=== PATIENT | male | born 1960 | race Two or more races ===

== ENCOUNTER 2020-03-08 11:12 | Emergency (ER) | payer OTHER ==
[~2020-03-08] VITALS: Ht 165.1 cm; Wt 74.8 kg
[2020-03-08] MEDS ORDERED: ASPirin 81 mg TAB PO ONE (11:45)
[2020-03-08] MEDS ORDERED: FAMOTIDINE 20 MG TAB PO ONE (11:45)
[2020-03-08 13:35] LABS: Basophils # (auto) 0 10 ^3/uL (0-0.2); Basophils % (auto) 0.5 % (0.0-2.0); Eosinophils # (auto) 0 10 ^3/uL (0-0.8); Eosinophils % (auto) 0.2 % (0.0-7.0); Hematocrit 40.6 % (41.0-53.0); Hemoglobin 14.2 g/dL (13.5-17.5); Lymphocytes # (auto) 1.1 10 ^3/uL (0.4-5.4); Lymphocytes % (auto) 12.5 % (10.0-50.0); Mean Corpuscular Hemoglobin 30.8 pg (28.0-32.0); Mean Corpuscular Hgb Conc. 34.9 g/dL (32.0-36.0); Mean Corpuscular Volume 88.2 fL (80.0-100.0); Monocytes # (auto) 0.4 10 ^3/uL (0-1.3); Neutrophils # (auto) 7.1 10 ^3/uL (1.6-8.6); Neutrophils % (auto) 81.8 % (37.0-80.0); Nucleated Red Blood Cells % 0.1 %; Red Cell Distribution Width 13.6 % (11.8-14.3); White Blood Cell 8.6 10^3/uL (4.4-10.8)
[2020-03-08 16:57] LABS: Potassium 4.1 mmol/L (3.5-5.1)
[2020-03-08 17:03] LABS: Albumin 4.5 g/dL (3.4-5.0); BUN/Creatinine Ratio 12.1
[2020-03-08 17:06] LABS: Bilirubin, Total 0.9 mg/dL (0.2-1.0); Total Protein 8.3 g/dL (6.4-8.2)
[2020-03-08 18:16] VITALS: BP 122/77
== END 2020-03-08 18:26 | disposition home or self-care (01) ==
LOC: ER 11:12
DX: R07.89 Other chest pain (principal); E78.5 Hyperlipidemia, unspecified; I10 Essential (primary) hypertension
CPT/HCPCS: 36415; 71046; 80053; 84484; 85025; 93005

== ENCOUNTER 2020-12-24 08:10 | Inpatient (IN) | payer BC, OTHER ==
[~2020-12-24] VITALS: Ht 162.6 cm; Wt 67.5 kg
[2020-12-24] MEDS ORDERED: ASPirin 81 mg TAB PO ONE (09:30)
[2020-12-24 09:52] LABS: Basophils # (auto) 0.1 10 ^3/uL (0-0.2); Basophils % (auto) 0.9 % (0.0-2.0); Eosinophils # (auto) 0 10 ^3/uL (0-0.8); Eosinophils % (auto) 0.7 % (0.0-7.0); Hematocrit 42.8 % (41.0-53.0); Hemoglobin 14.6 g/dL (13.5-17.5); Lymphocytes % (auto) 15.6 % (10.0-50.0); Mean Corpuscular Hemoglobin 30.7 pg (28.0-32.0); Mean Corpuscular Volume 90.1 fL (80.0-100.0); Monocytes # (auto) 0.4 10 ^3/uL (0-1.3); Monocytes % (auto) 5.4 % (0.0-12.0); Neutrophils # (auto) 5.1 10 ^3/uL (1.6-8.6); Neutrophils % (auto) 77.4 % (37.0-80.0); Nucleated Red Blood Cells % 0.1 %; Red Blood Cells 4.75 10^6/uL (4.5-5.90); Red Cell Distribution Width 13.6 % (11.8-14.3); White Blood Cell 6.6 10^3/uL (4.4-10.8)
[2020-12-24 09:58] LABS: Albumin 3.9 g/dL (3.4-5.0); Anion Gap 5 (5-15); Blood Urea Nitrogen 16 mg/dL (7-18); Calcium 8.8 mg/dL (8.5-10.1); Carbon Dioxide 27 mmol/L (21-32); Chloride 109 mmol/L (98-107); Glucose 109 mg/dL (74-106); Potassium 4.5 mmol/L (3.5-5.1); Sodium 141 mmol/L (136-145)
[2020-12-24 10:05] LABS: Alanine Aminotransferase 44 U/L (16-61); Alkaline Phosphatase 79 U/L (45-117); Aspartate Aminotransferase 18 U/L (15-37); BUN/Creatinine Ratio 14.8; Bilirubin, Total 0.8 mg/dL (0.2-1.0); GFR African American 90 mL/min; GFR Non-African American 74 mL/min
[2020-12-24 10:20] LABS: Urine Bacteria NONE SEEN /hpf (None Seen); Urine Blood Negative /uL (Negative); Urine Specific Gravity 1.011 (1.001-1.035); Urine WBC 1 /hpf (0 - 3)
[2020-12-24] MEDS ORDERED: HYDROcodone-ACET 5/325MG TAB PO PRN (14:30)
[2020-12-24] MEDS ORDERED: ACETAMINOPHEN 500 MG TAB PO PRN (14:30)
[2020-12-24] MEDS ORDERED: NITROGLYCERIN 0.4 MG SL TAB SL PRN (14:30)
[2020-12-24] MEDS ORDERED: ONDANSETRON HCL 4 MG/2 ML VIAL IV PRN (14:30)
[2020-12-24] MEDS ORDERED: hydrALAZINE HCL 20 MG/ML VL IV PRN (14:30)
[2020-12-24] MEDS ORDERED: MORPHINE SULFATE INJECTION 2 MG/ML SYRG IV PRN ×2 (14:30)
[2020-12-24 15:50] LABS: CRP High Sensitivity 0.08 mg/dL (< 0.3)
[2020-12-24] MEDS: DOCUSATE SOD 100 MG CAP PO SCH (22:05)
[2020-12-24] MEDS: METOPROLOL TARTRATE 25 MG TAB PO SCH (22:05)
[2020-12-24] MEDS: ATORVASTATIN 20 MG TAB PO SCH (22:06)
[2020-12-24 22:25] VITALS: BP 158/85
[2020-12-24 22:30] VITALS: BP 147/70
[2020-12-24 23:27] VITALS: BP 147/70
[2020-12-25] VITALS (10 sets, daily range): BP systolic 113–141; BP diastolic 69–88
[2020-12-25] MEDS: ASPirin-EC 81 mg tab PO SCH (09:20)
[2020-12-25] MEDS: DOCUSATE SOD 100 MG CAP PO SCH ×2 (09:21→22:01)
[2020-12-25] MEDS: LISINOPRIL 10 MG TAB PO SCH (09:24)
[2020-12-25] MEDS: METOPROLOL TARTRATE 25 MG TAB PO SCH ×2 (09:24→22:01)
[2020-12-25 14:27] LABS: INR 1.02 (0.9-1.15); Partial Thromboplastin Time 28.1 sec (23.6-33.0)
[2020-12-25] MEDS ORDERED: fentaNYL CITRATE 100 MCG/2 ML VL ONE (14:44)
[2020-12-25] MEDS ORDERED: ANGIOMAX 250 MG VIAL IV ONE (14:44)
[2020-12-25] MEDS ORDERED: HEPARIN SODIUM (PORCINE) 5000 UNITS/ML 1ML VIAL ONE (14:44)
[2020-12-25] MEDS ORDERED: VERAPAMIL 2.5MG/ML INJ 2ML VIAL IV ONE (14:44)
[2020-12-25] MEDS ORDERED: SODIUM CHL 0.9% 0 ML ONE (14:45)
[2020-12-25] MEDS ORDERED: MIDAZOLAM HCL 2MG/2ML 2ml VIAL (1mg/ml) ONE (14:45)
[2020-12-25] MEDS ORDERED: LIDOCAINE 2%HCL (LOCAL ANESTH.) INJ 20ML MDV ONE (14:48)
[2020-12-25] MEDS ORDERED: IODIXANOL 320MG/ML 100ML BTL IV ONE (15:02)
[2020-12-25] MEDS: ATORVASTATIN 20 MG TAB PO SCH (22:01)
[2020-12-26 04:55] VITALS: BP 126/79
[2020-12-26 08:02] LABS: BUN/Creatinine Ratio 22.1; Magnesium 2.4 mg/dL (1.6-2.6)
[2020-12-26] MEDS: ASPirin-EC 81 mg tab PO SCH (08:31)
[2020-12-26] MEDS: DOCUSATE SOD 100 MG CAP PO SCH (08:31)
[2020-12-26] MEDS: METOPROLOL TARTRATE 25 MG TAB PO SCH (08:31)
[2020-12-26] MEDS: LISINOPRIL 10 MG TAB PO SCH (08:32)
[2020-12-26 09:00] VITALS: BP 123/75
[2020-12-26] MEDS ORDERED: ATOR10TA52 PO (09:06)
[2020-12-26] MEDS ORDERED: ASPI-543 PO (09:06)
[2020-12-26] MEDS ORDERED: AMLO-489 PO (09:06)
[2020-12-26] MEDS ORDERED: LISI30TA4 PO (09:06)
== END 2020-12-26 13:08 | disposition home or self-care (01) | DRG 286 ==
LOC: ER 08:10 → TELE 14:21 → TELE-EAST 21:31
PROVIDERS: ADMIT Nurse Practitioner Acute Care; ATTEND Internal Medicine
PROC: 4A023N7 Measurement of Cardiac Sampling and Pressure, Left Heart, Percutaneous Approach (ICD-10-PCS; principal; 2020-12-25)
PROC: B211YZZ Fluoroscopy of Multiple Coronary Arteries using Other Contrast (ICD-10-PCS; 2020-12-25)
DX: R07.89 Other chest pain (principal); I50.33 Acute on chronic diastolic (congestive) heart failure; I24.9 Acute ischemic heart disease, unspecified; Z20.822 Contact with and (suspected) exposure to COVID-19; E78.5 Hyperlipidemia, unspecified; I11.0 Hypertensive heart disease with heart failure
CPT/HCPCS: 36415; 71045; 80048; 80053; 80061; 81001; 83735; 83880; 84484; 85025; 85610; 85730; 86141; 87426; 93005; 93306; 99152; 99153; G0378; J2250; Q9967